=== PATIENT | female | born 1990 | race Two or more races ===

== ENCOUNTER 2020-04-02 22:01 | Emergency (ER) | payer SELFPAY ==
[~2020-04-02] VITALS: Ht 162.6 cm; Wt 103.0 kg
[2020-04-02 22:11] VITALS: BP 119/80
== END 2020-04-03 00:04 | disposition home or self-care (01) ==
LOC: ER 22:01
DX: M79.631 Pain in right forearm (principal); D64.9 Anemia, unspecified; E11.9 Type 2 diabetes mellitus without complications; Z90.49 Acquired absence of other specified parts of digestive tract; Z88.6 Allergy status to analgesic agent; Z88.5 Allergy status to narcotic agent
CPT/HCPCS: 99281